=== PATIENT | female | born 1945 | race Caucasian/White ===

== ENCOUNTER 2017-07-30 10:02 | Outpatient (CLI) | payer MEDICARE, MEDICAID, OTHER ==
[2017-07-30] MEDS ORDERED: Lidocaine 2% Jelly 5 ML TUBE ONE (17:26)
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
== END 2017-07-30 10:03 | disposition home or self-care (01) ==
LOC: WCC 10:02
PROVIDERS: ATTEND Family Medicine
DX: I87.333 Chronic venous hypertension (idiopathic) with ulcer and inflammation of bilateral lower extremity (principal); I25.10 Atherosclerotic heart disease of native coronary artery without angina pectoris; J44.9 Chronic obstructive pulmonary disease, unspecified; G43.909 Migraine, unspecified, not intractable, without status migrainosus; E11.40 Type 2 diabetes mellitus with diabetic neuropathy, unspecified; I10 Essential (primary) hypertension; G47.33 Obstructive sleep apnea (adult) (pediatric); D64.9 Anemia, unspecified; I69.351 Hemiplegia and hemiparesis following cerebral infarction affecting right dominant side
CPT/HCPCS: 29581 ×2; 97139; G0463; 99204

== ENCOUNTER 2017-08-13 08:24 | Outpatient (CLI) | payer MEDICARE, OTHER, MEDICAID ==
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
[2017-08-13] MEDS ORDERED: Sodium Chloride 0.9% 15 ML NEB ONE (17:26)
[2017-08-13] MEDS ORDERED: Lidocaine 2% Jelly 5 ML TUBE ONE (17:26)
== END 2017-08-13 08:25 | disposition home or self-care (01) ==
LOC: WCC 08:24
PROVIDERS: ATTEND Family Medicine
DX: I87.333 Chronic venous hypertension (idiopathic) with ulcer and inflammation of bilateral lower extremity (principal); E11.621 Type 2 diabetes mellitus with foot ulcer; L97.929 Non-pressure chronic ulcer of unspecified part of left lower leg with unspecified severity; L97.919 Non-pressure chronic ulcer of unspecified part of right lower leg with unspecified severity; I25.10 Atherosclerotic heart disease of native coronary artery without angina pectoris; J44.9 Chronic obstructive pulmonary disease, unspecified; G43.909 Migraine, unspecified, not intractable, without status migrainosus; G62.9 Polyneuropathy, unspecified; I63.9 Cerebral infarction, unspecified; G81.91 Hemiplegia, unspecified affecting right dominant side; G47.33 Obstructive sleep apnea (adult) (pediatric); D64.9 Anemia, unspecified; K21.9 Gastro-esophageal reflux disease without esophagitis; K57.90 Diverticulosis of intestine, part unspecified, without perforation or abscess without bleeding; G20 Parkinson's disease; Z85.89 Personal history of malignant neoplasm of other organs and systems
CPT/HCPCS: 11042; A4218

== ENCOUNTER 2017-08-20 10:48 | Outpatient (CLI) | payer MEDICARE, OTHER, MEDICAID ==
[2017-08-20] MEDS ORDERED: Sodium Chloride 0.9% 15 ML NEB ONE (17:03)
[2017-08-20] MEDS ORDERED: Lidocaine 2% Jelly 5 ML TUBE ONE (17:03)
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
== END 2017-08-20 10:49 | disposition home or self-care (01) ==
LOC: WCC 10:48
PROVIDERS: ATTEND Family Medicine
DX: E11.622 Type 2 diabetes mellitus with other skin ulcer (principal); I87.333 Chronic venous hypertension (idiopathic) with ulcer and inflammation of bilateral lower extremity; L97.829 Non-pressure chronic ulcer of other part of left lower leg with unspecified severity; L97.819 Non-pressure chronic ulcer of other part of right lower leg with unspecified severity; I25.10 Atherosclerotic heart disease of native coronary artery without angina pectoris; J44.9 Chronic obstructive pulmonary disease, unspecified; G43.909 Migraine, unspecified, not intractable, without status migrainosus; E11.40 Type 2 diabetes mellitus with diabetic neuropathy, unspecified; I10 Essential (primary) hypertension; G47.33 Obstructive sleep apnea (adult) (pediatric); D64.9 Anemia, unspecified; K21.9 Gastro-esophageal reflux disease without esophagitis; K57.90 Diverticulosis of intestine, part unspecified, without perforation or abscess without bleeding; G20 Parkinson's disease
CPT/HCPCS: 11042; A4218

== ENCOUNTER 2017-09-06 08:13 | Emergency (ER) | payer MEDICARE, OTHER ==
[2017-09-06] MEDS ORDERED: Morphine 4 MG/ML VIAL ONE (09:13)
[2017-09-06 09:26] LABS: Bilirubin Negative (Negative); Blood, Urine Moderate (Negative); Glucose, Urine (Dipstick) 500 mg/dL (Negative); Ketone, Urine Negative (Negative); Nitrite Negative (Negative); Protein, Urine (Dipstick) Negative (Neg-Trace); Urobilinogen 0.2 mg/dL (0.2-1.0)
[2017-09-06 09:28] LABS: Bacteria/HPF None Seen HPF (None Seen); Hyaline Casts/LPF 4-6 HYALINE CAST LPF (0-3 Hyaline); RBC/HPF 21-50 HPF (0-3); Squamous Epithelial 0-3 HPF (0-3); WBC/HPF 0-3 HPF (0-3)
--- NOTE | 2017-09-06 11:42 | RAD ---
RIGHT HIP 2 VIEWS: Date: 09/06/17 PROVIDED CLINICAL HISTORY: Right hip pain. FINDINGS: No evidence for fracture or other acute osseous abnormality. Alignment appears anatomic. Right hip sea int space appears preserved. No lytic or blastic lesions are seen. IMPRESSION: No evidence for an acute osseous abnormality or significant arthropathy. POS: VITALY
--- NOTE | 2017-09-06 11:52 | RAD ---
LUMBAR SPINE RADIOGRAPHS 3 VIEWS: Date: 09/06/17 PROVIDED CLINICAL HISTORY: Back pain. FINDINGS: No comparisons. Five non-rib bearing lumbar-type vertebral bodies are present. There is left convexity curvature of t he lower thoracic and upper lumbar spine. Sagittal lumbar alignment appears normal. Vertebral body he ights appear preserved. Advanced multilevel lumbar disc and facet degenerative changes are seen. Athe rosclerosis involves the abdominal aorta. IMPRESSION: Scoliosis and degenerative change involving the lumbar spine without evidence for an acute osseous ab normality. POS: NOA
== END 2017-09-06 12:05 | disposition home or self-care (01) ==
LOC: ERS 08:13
DX: M54.41 Lumbago with sciatica, right side (principal); I25.10 Atherosclerotic heart disease of native coronary artery without angina pectoris; I11.0 Hypertensive heart disease with heart failure; I50.9 Heart failure, unspecified; G20 Parkinson's disease; J44.9 Chronic obstructive pulmonary disease, unspecified; F32.9 Major depressive disorder, single episode, unspecified; F17.210 Nicotine dependence, cigarettes, uncomplicated; Z79.84 Long term (current) use of oral hypoglycemic drugs; Z79.891 Long term (current) use of opiate analgesic; Z79.1 Long term (current) use of non-steroidal anti-inflammatories (NSAID); Z79.899 Other long term (current) drug therapy; Z86.73 Personal history of transient ischemic attack (TIA), and cerebral infarction without residual deficits
CPT/HCPCS: 51701; 72100; 81003; 81015; 87086; 96372; A4353; J2270

== ENCOUNTER 2017-09-17 13:59 | Outpatient (CLI) | payer MEDICARE, OTHER, MEDICAID ==
--- NOTE | 2017-09-17 15:59 | PRG ---
DATE OF SERVICE: 09/17/2017 HISTORY: Ms. Chris Muller is a very pleasant 72-year-old who presents to the Wound Center for evaluation of ulcerations of the right and left lower legs associated with edema. After being seen i n the Wound Center, Silverlon, Webril, and 3M Coban 2 layer compression system were applied to the ul cerations of the right and left lower legs. The patient received the preceding dressing changes 2 ti mes per week after cleansing and irrigation with the assistance of Home Health. [facility], Ms. Muller declined application of the 3M Coban 2 layer compressi on system to the right and left lower leg ulcerations. Therefore, dressing changes of Adaptic, ABDs, and an Jax bandage were initiated. The patient has been receiving these dressing changes 3 times pe r week after cleansing and irrigation again with the assistance of Home Health. PHYSICAL EXAMINATION: VITAL SIGNS: Temperature 98.0, pulse 69, respirations 19, blood pressure 173/78, Accu-Chek 201. EXTREMITIES: Multiple ulcerations of the right and left lower legs are present. The largest ulcerat ion is present over the right lower leg and measures approximately 4.0 x 3.5 cm. The dimensions of t he wound at the time of the patient's visit on 08/27/2017 were approximately 4.5 x 4.2 cm. Granulati on tissue is present within the wound margins. Necrotic and nonviable tissue present within the woun d margins was debrided with an excisional full-thickness debridement with the use of a curet. No pur ulent drainage is associated with the wound. No cellulitis of the right or left lower legs is apprec iated. Erythema of the right and left lower leg is present and appears to be secondary to stasis roderick nges as opposed to an infectious process. No maceration of the skin of the right or left lower leg i s noted. A dorsalis pedis pulse is palpable on the right. No significant edema of the right and lef t feet or lower legs is present on today's exam. ASSESSMENT AND PLAN: 1. Chronic venous hypertension with ulcers and inflammation. Dressing changes of Adaptic, ABDs, and an Jax bandage will be continued 3 times per week after cleansing and irrigation with the assistance of Home Health. I will see Ms. Muller again in one week. At this time, consideration will be give n to treatment with Apligraf. The patient understands and is in agreement with the preceding treatme nt plan. 2. Diabetes mellitus. The patient's Accu-Chek in clinic today is 201. The patient has been reminde d that for optimal wound healing, her blood glucoses should remain below 150. 3. Coronary artery disease. 4. Chronic obstructive pulmonary disease. 5. Migraine headaches. 6. Peripheral neuropathy. 7. Cerebrovascular accident with right hemiparesis. 8. Hypertension. 9. History of gastrointestinal bleeding. 10. Obstructive sleep apnea. 11. Anemia. 12. Gastroesophageal reflux disease. 13. History of seizure disorder. 14. Diverticulosis. 15. Parkinsonian syndrome. 16. History of thyroid carcinoma.
[2017-09-17] MEDS ORDERED: Sodium Chloride 0.9% 15 ML NEB ONE (17:48)
[2017-09-17] MEDS ORDERED: Lidocaine 2% Jelly 5 ML TUBE ONE (17:48)
== END 2017-09-17 14:00 | disposition home or self-care (01) ==
LOC: WCC 13:59
PROVIDERS: ATTEND Family Medicine
DX: I87.333 Chronic venous hypertension (idiopathic) with ulcer and inflammation of bilateral lower extremity (principal); L97.929 Non-pressure chronic ulcer of unspecified part of left lower leg with unspecified severity; L97.919 Non-pressure chronic ulcer of unspecified part of right lower leg with unspecified severity; E11.622 Type 2 diabetes mellitus with other skin ulcer; I25.10 Atherosclerotic heart disease of native coronary artery without angina pectoris; J44.9 Chronic obstructive pulmonary disease, unspecified; G43.909 Migraine, unspecified, not intractable, without status migrainosus; G62.9 Polyneuropathy, unspecified; I69.351 Hemiplegia and hemiparesis following cerebral infarction affecting right dominant side; I10 Essential (primary) hypertension; G47.33 Obstructive sleep apnea (adult) (pediatric); D64.9 Anemia, unspecified; K21.9 Gastro-esophageal reflux disease without esophagitis; K57.90 Diverticulosis of intestine, part unspecified, without perforation or abscess without bleeding; G20 Parkinson's disease
CPT/HCPCS: 11042; A4218

== ENCOUNTER 2017-09-24 12:32 | Outpatient (CLI) | payer MEDICARE, OTHER ==
--- NOTE | 2017-09-24 15:05 | PRG ---
DATE OF SERVICE: 09/24/2017 HISTORY: Ms. Chris Muller is a very pleasant 72-year-old who presents to the Wound Center for evaluation of ulcerations of the right and left lower legs associated with edema. After being seen i n the Wound Center, Silverlon, Webril, and 3M Coban 2 layer compression system were applied to the ul cerations of the right and left lower legs. The patient received the preceding dressing changes 2 ti mes per week after cleansing and irrigation with the assistance of Home Health. At the time of the p nora's visit on 08/27/2017, Ms. Muller declined application of the 3M Coban 2 layer compression sy stem to the right and left lower leg ulcerations. At this time, dressing changes of Adaptic, ABDs, a nd an Jax bandage were initiated. The patient received these dressing changes three times per week a fter cleansing and irrigation with the assistance of Home Health. PHYSICAL EXAMINATION: VITAL SIGNS: Temperature 97.6, pulse 67, respirations 17, blood pressure 135/96. Accu-Chek 144. EXTREMITIES: An ulceration is present over the right anterior lower leg and measures approximately 2 .9 x 3.6 cm. An ulceration is present over the left anterior lower leg and measures approximately 1. 0 x 2.2 cm. Granulation tissue is present within the margins of each wound. Necrotic and nonviable tissue present within the margins of each wound was debrided with an excisional full-thickness debrid ement with the use of a curet. No purulent drainage is associated with either wound. No cellulitis of the right or left lower legs is appreciated. Erythema of the right and left lower legs is present and appears to be secondary to stasis changes as opposed to an infectious process. No maceration of the skin of the right or left lower leg is noted. A dorsalis pedis pulse is palpable on the right a nd on the left. No significant edema of the right and left feet or lower legs is present on exam tod ay. ASSESSMENT AND PLAN: 1. Chronic venous hypertension with ulcers and inflammation. Apligraf was applied to the wound bed of each ulceration, followed by Mepitel, a bolster of saline-moistened gauze, 4 x 4's, and the 3M Cob an 2 layer compression system. I will see Ms. Muller again in one week. At this time, consideratio n will be given to another placement of Apligraf. 2. Diabetes mellitus. The patient's Accu-Chek in clinic today is 144. The patient has been reminde d that for optimal wound healing, her blood glucoses should remain below 150. 3. Coronary artery disease. 4. Chronic obstructive pulmonary disease. 5. Migraine headaches. 6. Peripheral neuropathy. 7. Cerebrovascular accident with right hemiparesis. 8. Hypertension. 9. History of gastrointestinal bleeding. 10. Obstructive sleep apnea. 11. Anemia. 12. Gastroesophageal reflux disease. 13. History of seizure disorder. 14. Diverticulosis. 15. Parkinsonian syndrome. 16. History of thyroid carcinoma.
== END 2017-09-24 12:33 | disposition home or self-care (01) ==
LOC: WCC 12:32
PROVIDERS: ATTEND Family Medicine
DX: I87.332 Chronic venous hypertension (idiopathic) with ulcer and inflammation of left lower extremity (principal); L97.929 Non-pressure chronic ulcer of unspecified part of left lower leg with unspecified severity; E11.622 Type 2 diabetes mellitus with other skin ulcer; I25.10 Atherosclerotic heart disease of native coronary artery without angina pectoris; J44.9 Chronic obstructive pulmonary disease, unspecified; G43.909 Migraine, unspecified, not intractable, without status migrainosus; G62.9 Polyneuropathy, unspecified; I69.351 Hemiplegia and hemiparesis following cerebral infarction affecting right dominant side; I10 Essential (primary) hypertension; G47.33 Obstructive sleep apnea (adult) (pediatric); D64.9 Anemia, unspecified; K21.9 Gastro-esophageal reflux disease without esophagitis; K57.90 Diverticulosis of intestine, part unspecified, without perforation or abscess without bleeding; G20 Parkinson's disease
CPT/HCPCS: 15271; 97139; Q4101

== ENCOUNTER 2017-10-01 10:09 | Outpatient (CLI) | payer MEDICARE, OTHER ==
[2017-10-01] MEDS ORDERED: Lidocaine 2% Jelly 5 ML TUBE ONE (10:52)
[2017-10-01] MEDS ORDERED: Sodium Chloride 0.9% 15 ML NEB ONE (10:52)
--- NOTE | 2017-10-01 11:33 | PRG ---
DATE OF SERVICE: 10/01/2017 HISTORY: Ms. Chris Muller is a very pleasant 72-year-old who presents to the Wound Center for evaluation of ulcerations of the right and left lower legs associated with edema. After being seen i n the Wound Center, Silverlon, Webril, and 3M Coban 2 layer compression system were applied to the ul cerations of the right and left lower legs. At the time of the patient's last visit, Apligraf was ap plied to the wound bed of each ulceration. The patient denies any fever or chills. PHYSICAL EXAMINATION: VITAL SIGNS: Temperature 97.6, pulse 77, respirations 18, blood pressure 151/71. Accu-Chek 107. EXTREMITIES: An ulceration is present over the right anterior lower leg and measures approximately 3 .3 x 2.5 cm. The dimensions of the wound at the time of the patient's last visit were approximately 2.9 x 3.6 cm. An ulceration is present over the left anterior lower leg and measures approximately 2 .9 x 3.5 cm. Granulation tissue is present within the margins of each wound. No purulent drainage i s associated with either wound. Erythema of the skin surrounding the right anterior lower leg ulcera tion is present. No maceration of the skin of the right or left lower leg is noted. No significant edema of the right or left foot or lower legs is present on exam today. ASSESSMENT AND PLAN: 1. Chronic venous hypertension with ulcers and inflammation. Apligraf was applied to the wound bed of each ulceration followed by Mepitel, a bolster of saline-moistened gauze, 4 x 4's, and the 3M Cate n 2 layer compression system. I will see Ms. Muller again in 1 week. At this time, consideration w ill be given to another placement of Apligraf. The patient has been given a prescription for Bactrim DS #20 one p.o. b.i.d. x10 days in addition to Tylenol 3, #30, one to two p.o. q.4-6h. p.r.n. pain. 2. Diabetes mellitus. The patient's Accu-Chek in clinic today is 107. The patient has been reminde d that for optimal wound healing, her blood glucoses should remain below 150. 3. Coronary artery disease. 4. Chronic obstructive pulmonary disease. 5. Migraine headaches. 6. Peripheral neuropathy. 7. Cerebrovascular accident with right hemiparesis. 8. Hypertension. 9. History of gastrointestinal bleeding. 10. Obstructive sleep apnea. 11. Anemia. 12. Gastroesophageal reflux disease. 13. History of seizure disorder. 14. Diverticulosis. 15. Parkinsonian syndrome. 15. History of thyroid carcinoma.
== END 2017-10-01 10:10 | disposition home or self-care (01) ==
LOC: WCC 10:09
PROVIDERS: ATTEND Family Medicine
DX: I87.331 Chronic venous hypertension (idiopathic) with ulcer and inflammation of right lower extremity (principal); L97.819 Non-pressure chronic ulcer of other part of right lower leg with unspecified severity; E11.622 Type 2 diabetes mellitus with other skin ulcer; J44.9 Chronic obstructive pulmonary disease, unspecified; G43.909 Migraine, unspecified, not intractable, without status migrainosus; E11.40 Type 2 diabetes mellitus with diabetic neuropathy, unspecified; G47.33 Obstructive sleep apnea (adult) (pediatric); K21.9 Gastro-esophageal reflux disease without esophagitis; D64.9 Anemia, unspecified; G20 Parkinson's disease; K57.90 Diverticulosis of intestine, part unspecified, without perforation or abscess without bleeding; I10 Essential (primary) hypertension; I25.10 Atherosclerotic heart disease of native coronary artery without angina pectoris; I63.9 Cerebral infarction, unspecified; G81.91 Hemiplegia, unspecified affecting right dominant side; Z87.19 Personal history of other diseases of the digestive system; Z85.850 Personal history of malignant neoplasm of thyroid; Z86.69 Personal history of other diseases of the nervous system and sense organs
CPT/HCPCS: 15271; 97139; Q4101; A4218

== ENCOUNTER 2017-10-08 10:01 | Outpatient (CLI) | payer MEDICARE, OTHER ==
--- NOTE | 2017-10-08 12:13 | PRG ---
DATE OF SERVICE: 10/08/2017 HISTORY: Ms. Angelita Muller is a very pleasant 72-year-old who presents to the Wound Center for e valuation of ulcerations of the right and left lower legs associated with edema. After being seen in the Wound Center, Silverlon, Webril, and 3M Coban 2 layer compression system were applied to the ulc erations of the right and left lower legs. The patient is presently receiving treatment with Apligra f. Ms. Muller denies any fever or chills. PHYSICAL EXAMINATION: VITAL SIGNS: Temperature 97.5, pulse 59, respirations 15, blood pressure 139/62. Accu-Chek 196. EXTREMITIES: Ulceration is present over the right anterior lower leg and measures approximately 3.0 x 2.5 cm. The dimensions of the wound at the time of the patient's last visit were approximately 3.3 x 2.5 cm. Granulation tissue is present within the wound margins. No purulent drainage is associat ed with the wound. No erythema of the skin surrounding the wound is present. No maceration of the s kin of the periwound is noted. No significant edema of the right foot or lower leg is present on exa m today. ASSESSMENT AND PLAN: 1. Chronic venous hypertension with ulcer and inflammation. Apligraf was applied to the wound bed o f the right anterior lower leg ulceration today followed by Mepitel, a bolster of saline-moistened ga uze, 4 x 4's, and the 3M Coban 2 layer compression system. Orders will be transmitted to Home Health for dressing changes of Mepitel and the 3M Coban 2 layer compression system in 5 days and 2 times a week thereafter until the patient's followup visit in 3 weeks. Ms. Muller understands and is in agr eement with the preceding treatment plan. 2. Diabetes mellitus. The patient's Accu-Chek in clinic today is 196. The patient has been reminde d that for optimal wound healing, her blood glucoses should remain below 150. 3. Coronary artery disease. 4. Chronic obstructive pulmonary disease. 5. Migraine headaches. 6. Peripheral neuropathy. 7. Cerebrovascular accident with right hemiparesis. 8. Hypertension. 9. History of gastrointestinal bleeding. 10. Obstructive sleep apnea. 11. Anemia. 12. Gastroesophageal reflux disease. 13. History of seizure disorder. The patient is now taking Depakote. 14. Diverticulosis. 15. Parkinsonian syndrome. 16. History of thyroid carcinoma.
[2017-10-08] MEDS ORDERED: Sodium Chloride 0.9% 15 ML NEB ONE (21:25)
== END 2017-10-08 10:02 | disposition home or self-care (01) ==
LOC: WCC 10:01
PROVIDERS: ATTEND Family Medicine
DX: I87.333 Chronic venous hypertension (idiopathic) with ulcer and inflammation of bilateral lower extremity (principal); L97.929 Non-pressure chronic ulcer of unspecified part of left lower leg with unspecified severity; L97.919 Non-pressure chronic ulcer of unspecified part of right lower leg with unspecified severity; E11.622 Type 2 diabetes mellitus with other skin ulcer; I25.10 Atherosclerotic heart disease of native coronary artery without angina pectoris; J44.9 Chronic obstructive pulmonary disease, unspecified; G43.909 Migraine, unspecified, not intractable, without status migrainosus; E11.42 Type 2 diabetes mellitus with diabetic polyneuropathy; I69.351 Hemiplegia and hemiparesis following cerebral infarction affecting right dominant side; I10 Essential (primary) hypertension; G47.33 Obstructive sleep apnea (adult) (pediatric); D64.9 Anemia, unspecified; G20 Parkinson's disease; K57.90 Diverticulosis of intestine, part unspecified, without perforation or abscess without bleeding; G40.909 Epilepsy, unspecified, not intractable, without status epilepticus; Z85.850 Personal history of malignant neoplasm of thyroid
CPT/HCPCS: A4218; Q4101-KX-JC